=== PATIENT | female | born 1985 | race African-American/Black ===

== ENCOUNTER 2016-09-13 15:05 | Emergency (ER) | payer MEDICAID, OTHER ==
[~2016-09-13] VITALS: Ht 170.2 cm; Wt 75.0 kg
[~2016-09-13 15:05] MED LIST: FURO40TA5 PO; LOSA50TA20 PO; PRED5TAB48 PO
[2016-09-13 15:37] VITALS: BP 138/82
== END 2016-09-13 17:13 | disposition home or self-care (01) ==
LOC: ER 16:57
DX: H92.01 Otalgia, right ear (principal); I10 Essential (primary) hypertension
CPT/HCPCS: 99281

== ENCOUNTER 2021-03-03 01:54 | Emergency (ER) | payer MEDICAID ==
[~2021-03-03] VITALS: Ht 170.2 cm; Wt 117.0 kg
[~2021-03-03 01:54] MED LIST changes: -LOSA50TA20 PO; +LOSA50TA41 PO
[2021-03-03 02:22] VITALS: BP 146/78
[2021-03-03] MEDS ORDERED: TETRACAINE 0.5% OPHTH DROPS 4ML RIGHTEYE ONE (03:00)
[2021-03-03] MEDS ORDERED: FLUORESCEIN SODIUM 1MG/STRIP RIGHTEYE ONE (03:00)
[2021-03-03] MEDS ORDERED: IBUPROFEN 600MG TABLET PO ONE (03:00)
[2021-03-03] MEDS ORDERED: ACET-2708 MT (03:41)
[2021-03-03] MEDS ORDERED: ERYT1OIN6 RIGHTEYE (03:41)
[2021-03-03] MEDS ORDERED: POLY15DR31 RIGHTEYE (03:41)
== END 2021-03-03 04:04 | disposition home or self-care (01) ==
LOC: ER 01:54
DX: S00.11XA Contusion of right eyelid and periocular area, initial encounter (principal); W22.8XXA Striking against or struck by other objects, initial encounter; Y93.89 Activity, other specified; Y92.89 Other specified places as the place of occurrence of the external cause; Y99.8 Other external cause status; Z79.899 Other long term (current) drug therapy
CPT/HCPCS: 99284

== ENCOUNTER 2022-04-10 14:14 | Emergency (ER) | payer MEDICAID ==
[~2022-04-10] VITALS: Ht 170.2 cm; Wt 107.0 kg
[~2022-04-10 14:14] MED LIST changes: +ACET-2708 MT; +ERYT1OIN6 RIGHTEYE; +POLY15DR31 RIGHTEYE
[2022-04-10] MEDS ORDERED: KETOROLAC 15MG/ML VIAL IM ONE (17:30)
[2022-04-10 17:48] VITALS: BP 150/84
[2022-04-10] MEDS ORDERED: NAPR500T7 MT (18:59)
== END 2022-04-10 19:16 | disposition home or self-care (01) ==
LOC: ER 14:14
DX: S82.832A Other fracture of upper and lower end of left fibula, initial encounter for closed fracture (principal); Z98.890 Other specified postprocedural states; W01.0XXA Fall on same level from slipping, tripping and stumbling without subsequent striking against object, initial encounter; Y93.89 Activity, other specified; Y92.018 Other place in single-family (private) house as the place of occurrence of the external cause
CPT/HCPCS: 29515; 73610; 96372; 99283; J1885

== ENCOUNTER 2023-04-09 02:22 | Emergency (ER) | payer SELFPAY ==
[~2023-04-09] VITALS: Ht 167.6 cm; Wt 112.0 kg
[~2023-04-09 02:22] MED LIST changes: +NAPR500T7 MT
[2023-04-09 02:51] VITALS: O2SAT 100
[2023-04-09 04:04] LABS: CLARITY URINE CLOUDY (CLEAR); COLOR URINE YELLOW (YELLOW); GLUCOSE URINE NEGATIVE (NEGATIVE); KETONES URINE NEGATIVE (NEGATIVE); LEUKOCYTE ESTERASE URINE TRACE (NEGATIVE); NITRITE URINE NEGATIVE (NEGATIVE); OCCULT BLOOD URINE 1+ (NEGATIVE); PROTEIN URINE NEGATIVE (NEGATIVE); SPECIFIC GRAVITY URINE 1.005 (1.005-1.030); UROBILINOGEN URINE 0.2 E.U./dL (0.2-1.0)
[2023-04-09 04:14] LABS: BASOPHILS % 0.7 % (0.0-2.0); DIFFERENTIAL COMMENT 0; EOSINOPHILS % 1.7 % (0.0-5.0); HEMATOCRIT. 36.5 % (36.0-48.0); HEMOGLOBIN. 11.7 g/dL (12.0-16.0); LYMPHOCYTES % 12.3 % (20.0-50.0); MEAN CORPUSCULAR HEMOGLOBIN 22.9 pg (28.0-32.0); MEAN CORPUSCULAR VOLUME 71.6 fL (81.0-99.0); MEAN PLATELET VOLUME 8.6 fl (7.4-10.4); MONOCYTES % 9.1 % (2.0-8.0); NEUTROPHILS % 76.2 % (40.0-76.0); PLATELET 286 x1000/uL (130-400); RED BLOOD CELL COUNT 5.09 mill/uL (4.2-5.4); RED CELL DISTRIBUTION WIDTH 14.8 % (11.6-14.6); WHITE BLOOD COUNT 6.4 x1000/uL (4.5-11.0)
[2023-04-09 04:30] LABS: CALCIUM 9.4 mg/dL (8.7-10.4); CREATININE 1.8 mg/dL (0.6-1.0); POTASSIUM 4.1 mEq/L (3.5-5.1)
[2023-04-09 04:35] LABS: BACTERIA URINE NONE SEEN; RBC URINE NONE SEEN /hpf (0-2); SQUAMOUS EPITHELIAL CELL URINE NONE SEEN /lpf (RARE/1+); WBC URINE 0-2 /hpf (0-2)
[2023-04-09] MEDS ORDERED: HYDR30OI12 TP (05:59)
[2023-04-09 08:37] VITALS: BP 127/74; PULSE 68; RESP 20; TEMP 97.7
== END 2023-04-09 08:39 | disposition home or self-care (01) ==
LOC: ER 02:22
DX: N18.6 End stage renal disease (principal); L30.9 Dermatitis, unspecified; Z79.899 Other long term (current) drug therapy
CPT/HCPCS: 36415; 80048; 81003; 81025; 85025; 99283

== ENCOUNTER 2023-05-03 22:22 | Emergency (ER) | payer SELFPAY ==
[~2023-05-03] VITALS: Ht 170.2 cm; Wt 117.0 kg
[~2023-05-03 22:22] MED LIST changes: +HYDR30OI12 TP
[2023-05-03] MEDS ORDERED: KETOROLAC 60MG/2ML VIAL IM STA (23:42)
[2023-05-04] MEDS ORDERED: ONDANSETRON HCL 4MG/2ML INJ IV ONE (01:00)
[2023-05-04] MEDS ORDERED: PROPOFOL 200MG/20ML VIAL IV ONE (01:00)
[2023-05-04] MEDS ORDERED: KETOROLAC 30MG/ML VIAL IV STA (01:05)
[2023-05-04 01:35] VITALS: O2SAT 98
[2023-05-04 03:00] VITALS: TEMP 97.8
[2023-05-04 03:35] VITALS: BP 129/74; PULSE 84; RESP 16
[2023-05-04] MEDS ORDERED: NAPR-681 MT ×2 (03:41)
[2023-05-04] MEDS ORDERED: ACET-2708 PO (03:43)
== END 2023-05-04 04:31 | disposition home or self-care (01) ==
LOC: ER 22:22
DX: S43.005A Unspecified dislocation of left shoulder joint, initial encounter (principal); X58.XXXA Exposure to other specified factors, initial encounter; Y93.89 Activity, other specified; Y92.89 Other specified places as the place of occurrence of the external cause; Y99.8 Other external cause status
CPT/HCPCS: 99285; 23650; 73030 ×2; 99152; J1885; J2405; J2704